=== PATIENT | female | born 1965 | race African-American/Black ===

== ENCOUNTER 2017-02-13 15:23 | Emergency (ER) | payer OTHER ==
[~2017-02-13] VITALS: Ht 170.2 cm; Wt 99.8 kg
[~2017-02-13 15:23] MED LIST: BACTRIM DS TABL1 TA1; BACTRIM DS TABL1 TA1 PO; COLESTID PO; DIFLUCAN10 MG/ML PO; DOXYCYCLINE HY100 M3 PO; ELIMITE60 GM TOP; GLIPIZIDE10 MG PO; HYDROCHLOROTH12.5 M1 PO; LANTUS SOLOSTAR3 ML SQ; LORTAB 5/500 TA1 TA1 PO; MEDROL4 MG/DOSE-; MEDROL4 MG/DOSE- PO; METFORMIN HCL500 M1 PO; METFORMIN PO; NAPROXEN PO; NORVASC2.5 MG PO; NOVOLIN 70/30 V10 M1 SQ; NOVOLIN 70/30 V10 ML INJ; NYSTATIN-TRIAMC15 G1 TP; PANTOPRAZOLE SO40 MG PO; PHENERGAN DM1 ML PO; PSEUDOEPHEDRIN120 M1 PO; UNKNOWN B/P MED; VALSARTAN-HCTZ1 EAC1 PO
[2017-02-13 19:28] LABS: BASOPHIL% 0.5 % (0-2.5); HEMATOCRIT 37.5 % (35.0-45.0); HEMOGLOBIN 11.9 gm/dL (12.0-16.0); LYMPHOCYTE# 1.9 X10e3 (1.0-3.5); LYMPHOCYTE% 25.6 % (17.0-45.0); MEAN CELL VOLUME 76.4 FL (83-96); MEAN CORPUSCULAR HEMOGLOBIN 24.2 PG (28-34); MEAN CORPUSCULAR HGB CONC 31.6 g/dL (30-36); MEAN PLATELET VOLUME 8.1 FL (6.5-11.5); MONOCYTE# 0.4 X10e3 (0-1.0); MONOCYTE% 5.6 % (3.0-12.0); NEUTROPHIL# 5.1 X10e3 (1.5-7.1); NEUTROPHIL% 68.3 % (40-75); PLATELET COUNT 229 X10e3 (140-420); RED CELL DISTRIBUTION WIDTH 13.2 % (11.0-15.5); WHITE BLOOD COUNT 7.4 X10e3 (4.0-10.5)
[2017-02-13 19:30] LABS: DIFF IND NO
[2017-02-13 19:58] LABS: ALBUMIN SERUM 3.5 g/dL (3.5-5.0); BILIRUBIN, DIRECT 0.1 mg/dL (0.0-0.2); BILIRUBIN,INDIRECT 0.4 mg/dL (0.0-0.9); BILIRUBIN,TOTAL 0.5 mg/dL (0.2-2.0); BUN/CREATININE RATIO 16.66; CALCIUM SERUM 8.9 mg/dL (8.4-10.2); CREATININE SERUM 0.9 mg/dL (0.6-1.4); GLOM FILT RATE Estimated 85.3 mL/min (>60); POTASSIUM 4.3 mmol/L (3.5-5.1); PROTEIN TOTAL SERUM 7.2 g/dL (6.0-8.3)
== END 2017-02-13 20:18 | disposition home or self-care (01) ==
LOC: CED 15:23
PROVIDERS: Emergency Medicine
DX: R19.7 Diarrhea, unspecified (principal); I10 Essential (primary) hypertension; E11.9 Type 2 diabetes mellitus without complications; Z88.5 Allergy status to narcotic agent
CPT/HCPCS: 36415; 80048; 80076; 83690; 85025; 99284